=== PATIENT | male | born 1945 | race African-American/Black ===

== ENCOUNTER 2025-05-26 18:18 | Emergency (ER) | payer BC, OTHER ==
[~2025-05-26] VITALS: Ht 172.7 cm; Wt 70.0 kg
[2025-05-26 21:14] LABS: BASOPHILS % 1.0 % (0.0-2.0); EOSINOPHILS % 2.9 % (0.0-5.0); HEMATOCRIT. 39.5 % (42.0-52.0); HEMOGLOBIN. 12.8 g/dL (14.0-18.0); LYMPHOCYTES % 9.5 % (20.0-50.0); MEAN PLATELET VOLUME 8.0 fl (7.4-10.4); MONOCYTES % 9.1 % (2.0-8.0); NEUTROPHILS % 77.5 % (40.0-76.0); PLATELET 122 x1000/uL (130-400); RED BLOOD CELL COUNT 4.20 mill/uL (4.7-6.1); RED CELL DISTRIBUTION WIDTH 18.5 % (11.6-14.6)
[2025-05-26 21:35] LABS: UREA NITROGEN BLOOD 39 mg/dL (9-23)
[2025-05-26 21:37] LABS: ASPARTATE AMINOTRANSFERASE 37 IU/L (<34); BILIRUBIN DIRECT < 0.1 mg/dL (<=3.0); BILIRUBIN TOTAL 0.2 mg/dL (0.1-1.0); PROTEIN TOTAL 7.4 g/dL (6.0-8.3)
[2025-05-26] MEDS: SODIUM ZIRCONIUM CYCLOSILICATE 10GM/PACKET PO ONE (22:13)
[2025-05-26] MEDS: ACETAMINOPHEN 325MG TABLET PO ONE (22:14)
[2025-05-26 22:20] LABS: CREATININE 5.2 mg/dL (0.6-1.3)
[2025-05-26] MEDS ORDERED: DEXTROSE 50% WATER 50ML SYRINGE IV PRN (22:30)
[2025-05-26] MEDS: DEXTROSE 50% WATER 50ML SYRINGE IV ONE (22:31)
[2025-05-26] MEDS: CALCIUM GLUCONATE 100MG/ML 10ML VIAL IV ONE (22:32)
[2025-05-26] MEDS: INSULIN REGULAR (HUMULIN R) 1000UNITS/10ML VIAL IV ONE (22:38)
[2025-05-26 22:46] VITALS: PULSE 91; RESP 20; O2SAT 99
[2025-05-26] MEDS: ALBUTEROL (0.5%) 2.5MG/0.5ML NEB HHN ONE (22:46)
[2025-05-27 00:26] LABS: UREA NITROGEN BLOOD 31.0 mg/dL (9-23)
[2025-05-27 00:27] LABS: CREATININE 5.4 mg/dL (0.6-1.3)
[2025-05-27] MEDS ORDERED: ACETAMINOPHEN 325MG TABLET PO PRN (01:15)
[2025-05-27] MEDS: SODIUM CHLORIDE 0.9% 500 ML IV ONE (01:39)
[2025-05-27 02:59] VITALS: BP 125/69; PULSE 115; RESP 19; TEMP 36.9; O2SAT 99
== END 2025-05-27 03:18 | disposition short-term general hospital (02) ==
LOC: ER 18:18 → EDBEDREQ 23:56 → EDBEDREQTM 23:56 → CANRESERV 05-27 00:27 → ENRESERV 05-27 00:27 → EDBEDREQSVC 05-27 01:24 → EDBEDREQDT 05-27 01:51 → EDBEDREQTM 05-27 01:51 → ER 05-27 03:18 → CMPBEDREQ 05-27 08:04
DX: S72.001A Fracture of unspecified part of neck of right femur, initial encounter for closed fracture (principal); I12.0 Hypertensive chronic kidney disease with stage 5 chronic kidney disease or end stage renal disease; N18.6 End stage renal disease; E87.5 Hyperkalemia; D69.6 Thrombocytopenia, unspecified; Z99.2 Dependence on renal dialysis; W03.XXXA Other fall on same level due to collision with another person, initial encounter; Y93.01 Activity, walking, marching and hiking; Y92.488 Other paved roadways as the place of occurrence of the external cause; Y99.9 Unspecified external cause status
CPT/HCPCS: 99291; 96374; 96375; 80076; 80048; 82962 ×2; 83735; 85025; 86850; 86900; 86901; 36415; 72170; 73110; 93005; 98960; 94644; J0612; J1815; 94070; 94640; 94664